=== PATIENT | male | born 1945 | race Caucasian/White ===

== ENCOUNTER 2019-05-12 23:03 | Inpatient (IN) | payer MEDICARE, BC ==
[2019-05-13] MEDS ORDERED: ALPRAZolam 0.25 MG TAB PO PRN (00:01)
[2019-05-13] MEDS ORDERED: MORPHINE SULFATE 4 MG/ML SYRINGE IV PRN (00:01)
[2019-05-13] MEDS ORDERED: KETOROLAC 30 MG/ML 1 ML VIAL IVP PRN (00:01)
[2019-05-13] MEDS ORDERED: IBUPROFEN 400 MG TAB PO PRN (00:01)
[2019-05-13] MEDS ORDERED: NALOXONE 0.4 MG/ML 1 ML VIAL IV PRN (00:01)
--- NOTE | 2019-05-13 00:24 | ED ---
General Adult HPI - General Chief complaint: Urogenital Stated complaint: abnormal labs Time Seen by Provider: 05/12/19 23:27 Source: patient, EMS Mode of arrival: EMS Limitations: no limitations - History of Present Illness Initial comments: Patient is 74-year-old male presenting to emergency Department via transfer from [facility]. Patient was found to have a bladder wall mass in imaging. Patient also reported gross hematuria at the time. At this time patient has no complaints. Patient does report gross hematuria but denies any increased urgency frequency or dysuria. Patient denies any suprapubic or abdominal tenderness. Patient denies any back pain. Patient denies any feveror chills. Patient denies taking medication to alleviate the symptoms. - Related Data Allergies Allergy/AdvReac Type Severity Reaction Status Date / Time No Known Allergies Allergy Verified 05/12/19 23:20 Review of Systems ROS Statement: Those systems with pertinent positive or pertinent negative responses have been documented in the HPI. ROS Other: All systems not noted in ROS Statement are negative. Past Medical History Past Medical History: No Reported History History of Any Multi-Drug Resistant Organisms: None Reported Past Surgical History: No Surgical Hx Reported Past Psychological History: No Psychological Hx Reported Smoking Status: Never smoker Past Alcohol Use History: None Reported Past Drug Use History: None Reported General Exam Limitations: no limitations General appearance: alert, in no apparent distress Head exam: Present: atraumatic, normocephalic, normal inspection Eye exam: Present: normal appearance, PERRL, EOMI Pupils: Present: normal accommodation ENT exam: Present: normal exam, normal oropharynx, mucous membranes moist, TM's normal bilaterally, normal external ear exam Neck exam: Present: normal inspection, full ROM Respiratory exam: Present: normal lung sounds bilaterally Cardiovascular Exam: Present: regular rate, normal rhythm, normal heart sounds GI/Abdominal exam: Present: soft. Absent: tenderness, guarding Extremities exam: Present: normal inspection, full ROM Back exam: Present: normal inspection, full ROM Neurological exam: Present: alert, oriented X3 Psychiatric exam: Present: normal affect, normal mood Skin exam: Present: warm, intact, normal color Course Vital Signs 05/12/19 23:17 Temperature 98.2 F Pulse Rate 87 Respiratory 18 Rate Blood Pressure 126/86 O2 Sat by Pulse 100 Oximetry Medical Decision Making - Medical Decision Making Patient is 74-year-old male resenting to the emergency department via transfer from [facility]. This is an ED to ED transfer. Patient will be admitted for further medical management. Patient does have a bladder mass found on CT imaging. Admitting physician is Dr. Becerril. Urology consulted. Admission orders placed. Patient does not currently have a catheter. Case discussed with Dr. Smith. Disposition Clinical Impression: Bladder mass, Gross hematuria Disposition: HOME SELF-CARE Condition: Stable Instructions (If sedation given, give patient instructions): Urinary Tract Infection in Men (ED) Additional Instructions: Patient will be admitted. Is patient prescribed a controlled substance at d/c from ED?: No Referrals: Ryan Vences MD [Primary Care Provider] - 1-2 days Time of Disposition: 01:01
--- NOTE | 2019-05-13 10:19 | CT ---
EXAMINATION TYPE: CT chest wo con DATE OF EXAM: 05/13/2019 COMPARISON: None HISTORY: 74-year-old male with bladder mass TECHNIQUE: Contiguous axial scanning of the chest without IV contrast. Coronal and sagittal reconstru ctions performed. CT DLP: 353.4 mGycm Automated exposure control for dose reduction was used. FINDINGS: Heart normal size with small localized anterior pericardial fluid measuring 1.2 cm. Coronary vessel c alcifications are present. Ectatic ascending aorta at 3.7 cm and ectatic upper descending thoracic aorta at 3.2 cm. Conventional arch vessel branching anatomy. Enlarged caliber to the main right pulmonary artery of 3.1 cm may reflect underlying pulmonary arteri al hypertension. No thoracic lymphadenopathy by CT size criteria. Evaluation of the lungs shows mild strandy subpleural atelectasis and mild emphysematous change. No c onsolidation or pleural effusion. Small hiatal hernia. Upper abdomen shows a partially visualized hypodense lesion in the left kidney m easuring at least 3.6 cm. Prominent ingested debris within the stomach. Scattered colonic diverticulo sis. Bones: [facility] within the mid to lower thoracic spine. IMPRESSION: 1. STRANDY SUBPLEURAL AREAS OF ATELECTASIS AND MILD EMPHYSEMA. 2. POSSIBLE UNDERLYING PULMONARY ARTERIAL HYPERTENSION. 3. NO ACUTE PULMONARY PROCESS. 4. SMALL HIATAL HERNIA, COLONIC DIVERTICULOSIS, AND A PARTIALLY VISUALIZED HYPODENSE LESION IN THE LE FT KIDNEY MEASURING AT LEAST 3.6 CM WHICH MAY REPRESENT A CYST. RENAL ULTRASOUND SHOULD BE ABLE TO CO NFIRM.
[2019-05-13] MEDS: SODIUM CHLORIDE 0.9% 1,000 ML IV SCH (12:49)
--- NOTE | 2019-05-13 14:06 | P.NPCON ---
History of Present Illness - Reason for Consult acute renal failure - History of Present Illness Reason for consultation: Acute kidney injury History of present illness: Patient is a 74-year-old male seen in renal consultation for acute kidney injury. Unknown as to what his baseline renal function is. Patient went to [facility] yesterday and his creatinine was near 3. He underwent CAT scan of the abdomen and pelvis which revealed left bladder wall mass as well as severe left-sided hydronephrosis and mild right-sided hydronephrosis. No proteinuria was noted on UA. Patient states he noticed gross hematuria about 2 times and he hasn't had any hematuria since. He denies any vomiting or diarrhea. Denies use of nonsteroidals. Denies any family history of renal disease. Oral intake is good. Hemodynamically stable. No history of diabetes. No active complaints at this time. Vital signs are stable. General: The patient appeared well nourished and normally developed. HEENT: Head exam is unremarkable. Neck is without jugular venous distension. LUNGS: Lungs are clear to auscultation and percussion. Breath sounds decreased. HEART: Rate and Rhythm are regular. First and second heart sounds normal. No murmurs, rubs or gallops. ABDOMEN: Abdominal exam reveals normal bowel sounds. Non-tender and non- distended. No evidence of peritonitis. EXTREMITITES: No clubbing, cyanosis, or edema. Past Medical History Past Medical History: Pneumonia Additional Past Medical History / Comment(s): Per transfer papers pt was treated 2 weeks ago for a UTI History of Any Multi-Drug Resistant Organisms: None Reported Past Surgical History: Appendectomy Past Anesthesia/Blood Transfusion Reactions: No Reported Reaction Past Psychological History: No Psychological Hx Reported Smoking Status: Never smoker Past Alcohol Use History: None Reported Past Drug Use History: None Reported Medications and Allergies Home Medications Medication Instructions Recorded Confirmed Type No Known Home Medications 05/13/19 05/13/19 History Allergies Allergy/AdvReac Type Severity Reaction Status Date / Time No Known Allergies Allergy Verified 05/13/19 08:18 Physical Exam Vitals: Vital Signs Temp Pulse Pulse Resp BP BP Pulse Ox 05/13/19 06:45 97.9 F 88 16 107/66 93 L 05/13/19 02:01 98.4 F 79 16 129/73 99 05/13/19 01:53 65 18 123/78 97 05/12/19 23:17 98.2 F 87 18 126/86 100 Intake and Output 05/12/19 05/13/19 05/13/19 22:59 06:59 14:59 Other: Voiding Method Toilet Weight 73.028 kg Assessment and Plan Plan: Assessment: 1. Acute kidney injury secondary to obstructive uropathy. Unknown baseline creatinine. It was 3 yesterday. No proteinuria on UA. 2. Left bladder wall mass. 3. Severe left-sided hydronephrosis and mild right-sided hydronephrosis noted on CAT scan done on May 12. Urology consulted. 4. Gross hematuria which can be due to the bladder wall mass. 5. Metabolic acidosis secondary to acute kidney injury. Bicarb level was 20 as of yesterday. Plan: Start normal saline at 60 mL an hour. Await urology recommendations. Repeat UA. Check renal ultrasound. Repeat electrolytes in the morning. Thank you for the consultation. I will continue to follow the patient with you during his hospital stay.
[2019-05-13 14:45] LABS: Appearance,Urine Cloudy (Clear); Bilirubin,Urine Negative (Negative); Blood,Urine Moderate (Negative); Color,Urine Light Yellow; Glucose,Urine (UA) Negative (Negative); Ketones,Urine Negative (Negative); Leukocyte Esterase,Urine Large (Negative); Nitrite,Urine Negative (Negative); Protein,Urine Trace (Negative); RBC,Urine 42 /hpf (0-5); Specific Gravity,Urine 1.015 (1.001-1.035); Squamous Epithelial Cell,Urine <1 /hpf (0-4); Urobilinogen,Urine <2.0 mg/dL (<2.0); WBC,Urine 72 /hpf (0-5)
--- NOTE | 2019-05-13 15:07 | P.GSCN ---
History of Present Illness Consult date: 05/13/19 Reason for Consult: left hydonephrosis and left bladder mass History of present illness: The patient is a pleasant 74-year-old gentleman. He has mild mental handicap. He does live by himself and [place]. His brother is his power of ip technology transactions attorney. 3 weeks ago he developed gross hematuria. He was seen in the [place] emergency room and given antibiotics. He followed up with a local medical doctor and [place]. He was evaluated and found that of an elevated creatinine. He was sent to the emergency room and a computed tomography scan was performed. It showed bilateral hydronephrosis, severe on the left. There appears to be a bladder mass extending to the extravesical region. There is also a bladder diverticula and some mild hydronephrosis on the right. He other than the hematuria is had no voiding problems. He denies weight loss nausea or vomiting. He has never been a smoker. He has not seen a doctor in years. Review of Systems All systems: negative Past Medical History Past Medical History: Pneumonia Additional Past Medical History / Comment(s): Per transfer papers pt was treated 2 weeks ago for a UTI History of Any Multi-Drug Resistant Organisms: None Reported Past Surgical History: Appendectomy Past Anesthesia/Blood Transfusion Reactions: No Reported Reaction Past Psychological History: No Psychological Hx Reported Smoking Status: Never smoker Past Alcohol Use History: None Reported Past Drug Use History: None Reported Medications and Allergies Home Medications Medication Instructions Recorded Confirmed Type No Known Home Medications 05/13/19 05/13/19 History Allergies Allergy/AdvReac Type Severity Reaction Status Date / Time No Known Allergies Allergy Verified 05/13/19 08:18 Surgical - Exam Vital Signs Temp Pulse Resp BP Pulse Ox 98.2 F 87 18 126/86 100 05/12/19 23:17 05/12/19 23:17 05/12/19 23:17 05/12/19 23:17 05/12/19 23:17 - General well developed, well nourished, no distress - Eyes PERRL - ENT no hearing loss - Neck no masses, no bruits - Respiratory normal expansion, normal respiratory effort - Cardiovascular Rhythm: regular - Abdomen Abdomen: soft, non tender - Genitourinary prostate 20 gm normal penis with no external lesions, testicles present - Integumentary no rash, no growths - Neurologic normal coordination, normal sensation - Musculoskeletal normal gait, normal posture - Psychiatric oriented to time, oriented to person, oriented to place, speech is normal, memory intact Results - Labs Abnormal Lab Results - Last 24 Hours (Table) 05/13/19 Range/Units 14:30 Urine Protein Trace H (Negative) Urine Blood Moderate H (Negative) Ur Leukocyte Esterase Large H (Negative) Urine RBC 42 H (0-5) /hpf Urine WBC 72 H (0-5) /hpf Urine WBC Clumps Few H (None) /hpf - Imaging CT scan - abdomen: report reviewed, image reviewed CT scan - pelvis: report reviewed, image reviewed Assessment and Plan Assessment: Impression: left hydronephrosis, bladder mass Plan:Cysto probable turbt , possible left ureteral stent. This has been discussed with the patient's [id number] and brother. They're the power of ip technology transactions attorney. They understand the potential severity of this problem. They understand he may need a nephrostomy tube if we attempt to be an aggressive down the road.
--- NOTE | 2019-05-13 15:41 | P.CONS ---
History of Present Illness - Reason for Consult Consult date: 05/13/19 bladder mass Requesting physician: Cristian Becerril - Chief Complaint hematuria - History of Present Illness Mister Aragon is a very pleasant 69-year-old male with a rather benign past medical history who presented to [facility] with complaints of hematuria, persistent for a few days, the urine would clear towards the evening. No aggravating or alleviating symptoms reported. No associated symptoms- dysuria, incontinence of urine, urgency or frequency. Patient is a lifetime nonsmoker, he has had about a 15 pound weight loss in the last month or 2, denies fevers, chills, night sweats, no history of diabetes mellitus or renal failure, he denies any pain, difficulty swallowing, shortness of breath, cough, palpitations or chest pains, abdominal pain or cramping, distention, no loss of appetite or early CT despite the weight loss, moderate fatigue that is unusual for him. No personal history of malignancy Review of Systems 14 point ROS is as stated in HPI Past Medical History Past Medical History: Pneumonia Additional Past Medical History / Comment(s): Per transfer papers pt was treated 2 weeks ago for a UTI History of Any Multi-Drug Resistant Organisms: None Reported Past Surgical History: Appendectomy Past Anesthesia/Blood Transfusion Reactions: No Reported Reaction Past Psychological History: No Psychological Hx Reported Smoking Status: Never smoker Past Alcohol Use History: None Reported Past Drug Use History: None Reported Medications and Allergies Home Medications Medication Instructions Recorded Confirmed Type No Known Home Medications 05/13/19 05/13/19 History Allergies Allergy/AdvReac Type Severity Reaction Status Date / Time No Known Allergies Allergy Verified 05/13/19 08:18 Physical Exam Vitals: Vital Signs Temp Pulse Pulse Resp BP BP Pulse Ox 05/13/19 02:01 98.4 F 79 16 129/73 99 05/13/19 01:53 65 18 123/78 97 05/12/19 23:17 98.2 F 87 18 126/86 100 Intake and Output 05/12/19 05/13/19 05/13/19 22:59 06:59 14:59 Other: Voiding Method Toilet Weight 73.028 kg - Constitutional General appearance: average body habitus, cooperative, no acute distress - EENT Eyes: anicteric sclerae, EOMI, normal appearance ENT: hearing grossly normal, normal oropharynx - Neck Neck: no lymphadenopathy - Respiratory Respiratory: bilateral: CTA - Cardiovascular Rhythm: regular Heart sounds: normal: S1, S2 Abnormal Heart Sounds: no systolic murmur, no diastolic murmur, no rub, no S3 Gallop, no S4 Gallop, no click, no other leg Peripheral Edema: bilateral: None - Gastrointestinal General gastrointestinal: no absent bowel sounds, no decreased bowel sounds, no distended, no hepatomegaly, no hyperactive bowel sounds, normal bowel sounds, no organomegaly, no rigid, no scaphoid, soft, no splenomegaly, no tenderness, no umbilical hernia, no ventral hernia - Integumentary Integumentary: normal, normal turgor - Neurologic Neurologic: CNII-XII intact - Musculoskeletal Musculoskeletal: strength equal bilaterally - Psychiatric Psychiatric: A&O x's 3, appropriate affect, intact judgment & insight Results Comments: Reports from [facility] reviewed Requested CT report from [facility] Assessment and Plan (1) Bladder mass Current Visit: Yes Status: Acute Priority: High Code(s): N32.89 - OTHER SPECIFIED DISORDERS OF BLADDER SNOMED Code(s): 010459132 (2) Gross hematuria Current Visit: Yes Status: Acute Priority: High Code(s): R31.0 - GROSS HEMATURIA SNOMED Code(s): 919309187 Plan: High suspicion for malignancy based on presentation and history obtained. CT chest without contrast ordered for staging purpose Urology consulted for evaluation and biopsy of bladder mass. From report there may be blockage of ureter so, ureteral stent may also be necessary. Will await Urology evaluation and recommendations Nephrology consulted for acute renal failure Doctor attests: I performed a history and physical examination of this patient, developed impression and plan of care, discussed with dictator. I agree with dictators note, documented as a scribe.
--- NOTE | 2019-05-13 16:17 | US ---
EXAMINATION TYPE: US kidneys/renal and bladder DATE OF EXAM: 05/13/2019 COMPARISON: CT 05/12/2019 CLINICAL HISTORY: heladio. HELADIO EXAM MEASUREMENTS: Right Kidney: 11.3 x 5.3 x 4.9 cm Left Kidney: 11.1 x 5.6 x 6.0 cm Right Kidney: Moderate hydronephrosis. Left Kidney: Severe hydronephrosis. Dilated ureter. Bladder: Suspect a diverticulum at the right lateral bladder wall. Abnormal thickening present along the left lateral bladder wall is suggestive of bladder carcinoma. No evident renal mass or stone IMPRESSION: Bilateral hydronephrosis as noted on CT, findings suggestive of bladder carcinoma as described.
--- NOTE | 2019-05-13 22:45 | P.HPIM ---
History of Present Illness H&P Date: 05/13/19 Chief Complaint: Bladder mass. Patient was transferred from outside hospital facility. This 74-year-old male without significant past medical history initially presented to [facility] with complaints of blood in the urine. Patient had CT of abdomen pelvis which revealed left bladder wall mass as well as severe left-sided hydronephrosis and mild right-sided hydronephrosis. Patient was also found have elevated creatinine level around 3. Patient was eventually transferred to [facility] for further intervention by urology and oncology. Patient otherwise denied any complaints of fever or chills. No urgency or urinary frequency. No dysuria. Denied any abdominal pain or suprapubic tenderness. No back pain. as of chest pain or shortness breath. No history of prior renal problems previously. Laboratory data and imaging studies from [facility] reviewed. CT chest was ordered. Oncology and urology and nephrology has seen the patient. Review of Systems Constitutional: Patient denies any fever or chills . No generalized weakness or weight loss. Abdomen: Patient denied nausea vomiting and diarrhea and abdominal pain. Cardiovascular: Patient denies any chest pain or short of breath no palpitations. Respiratory: patient denied any cough is from production. No shortness of breath Neurologic: Patient denied any numbness or tingling headache. Musculoskeletal: Patient denies any complaints of joint swelling or deformity. Skin: Negative Psychiatric: Negative Endocrine: No heat or cold intolerance. No recent weight gain. Genitourinary: No dysuria. Patient does have hematuria. All other 14 point ROS negative except the above Past Medical History Past Medical History: Pneumonia Additional Past Medical History / Comment(s): Per transfer papers pt was treated 2 weeks ago for a UTI History of Any Multi-Drug Resistant Organisms: None Reported Past Surgical History: Appendectomy Past Anesthesia/Blood Transfusion Reactions: No Reported Reaction Past Psychological History: No Psychological Hx Reported Smoking Status: Never smoker Past Alcohol Use History: None Reported Past Drug Use History: None Reported Medications and Allergies Home Medications Medication Instructions Recorded Confirmed Type No Known Home Medications 05/13/19 05/13/19 History Allergies Allergy/AdvReac Type Severity Reaction Status Date / Time No Known Allergies Allergy Verified 05/13/19 08:18 Physical Exam Vitals: Vital Signs Temp Pulse Pulse Resp BP BP Pulse Ox 05/13/19 06:45 97.9 F 88 16 107/66 93 L 05/13/19 02:01 98.4 F 79 16 129/73 99 05/13/19 01:53 65 18 123/78 97 05/12/19 23:17 98.2 F 87 18 126/86 100 Intake and Output 05/12/19 05/13/19 05/13/19 22:59 06:59 14:59 Other: Voiding Method Toilet Weight 73.028 kg PHYSICAL EXAMINATION: Patient is lying in the bed comfortably, no acute distress, awake alert and oriented.. HEENT: Normocephalic. Neck is supple. Pupils reactive. Nostrils clear. Oral cavity is moist. Ears reveal no drainage. Neck reveals no JVD, carotid bruits, or thyromegaly. CHEST EXAMINATION: Trachea is central. Symmetrical expansion. Lung soni clear to auscultation and percussion. CARDIAC: Normal S1, S2 with no gallops. No murmurs ABDOMEN: Soft. Bowel sounds normal. No organomegaly. No abdominal bruits. Extremities: reveal no edema. No clubbing or cyanosis Neurologically awake, alert, oriented x3 with well-coordinated movements. No focal deficits noted Skin: No rash or skin lesions. Psychiatric: Coperative. Nonsuicidal Musculoskeletal: No joint swelling or deformity. Normal range of motion. Thrombosis Risk Factor Assmnt - DVT/VTE Prophylaxis DVT/VTE Prophylaxis: Mechanical Prophylaxis ordered - Choose All That Apply Any of the Below Risk Factors Present?: No Each Risk Factor Represents 3 Points: Age 75 years or older Thrombosis Risk Factor Assessment Total Risk Factor Score: 3 Thrombosis Risk Factor Assessment Level: Moderate Risk Assessment and Plan Assessment: Left bladder wall mass Gregory hematuria likely due to left bladder wall mass Acute kidney injury likely due to obstructive uropathy Bilateral hydronephrosis left greater than right DVT prophylaxis SCDs Plan: Patient will be continued on IV hydration and monitor H&H. Urology is planning for cystoscopy and biopsy tomorrow. Nephrology and oncology is on board. CT of the chest was done. Follow CBC and CMP tomorrow. Further recommendations based on the clinical course. Prognosis is guarded at this time. Time with Patient: Greater than 30
[2019-05-14] MEDS: SODIUM CHLORIDE 0.9% 1,000 ML IV SCH ×3 (06:07→13:33)
[2019-05-14 07:21] LABS: Basophils # (A) 0.1 k/uL (0-0.2); Basophils % (A) 1 %; Eosinophils % (A) 0 %; HCT 31.2 % (39.0-53.0); HGB 9.9 gm/dL (13.0-17.5); Lymphocytes # (A) 1.3 k/uL (1.0-4.8); Lymphocytes % (A) 15 %; MCH 27.9 pg (25.0-35.0); MCHC 31.7 g/dL (31.0-37.0); MCV 88.1 fL (80.0-100.0); Mean Platelet Volume 6.2; Monocytes # (A) 0.7 k/uL (0-1.0); Monocytes % (A) 9 %; Neutrophils % (A) 73 %; Platelet Count 344 k/uL (150-450); RBC 3.54 m/uL (4.30-5.90); RDW 14.8 % (11.5-15.5); WBC 8.2 k/uL (3.8-10.6)
[2019-05-14 07:37] LABS: Albumin 3.2 g/dL (3.5-5.0); Calcium 9.1 mg/dL (8.4-10.2); Total Bilirubin 0.7 mg/dL (0.2-1.3); Total Protein 5.9 g/dL (6.3-8.2)
[2019-05-14] MEDS ORDERED: IV FLUID CONTINUATION 1,000 ML IV ONE (11:44)
[2019-05-14] MEDS ORDERED: ONDANSETRON 4 MG/2 ML VIAL IVP ONE (12:08)
[2019-05-14] MEDS ORDERED: DEXAMETHASONE SOD PHOSPHATE 10 MG/ML 1 ML VIAL IV ONE (12:09)
[2019-05-14] MEDS ORDERED: HYDROmorphone (PF) 1 MG/ML ONE (13:10)
[2019-05-14] MEDS ORDERED: MIDAZOLAM 2 MG/2 ML VIAL ONE (13:10)
[2019-05-14] MEDS ORDERED: PROPOFOL 10 MG/ML 20 ML VIAL IV ONE (13:10)
[2019-05-14] MEDS ORDERED: fentaNYL (PF) 50 MCG/ML 2 ML AMP ONE (13:10)
[2019-05-14] MEDS ORDERED: LIDOCAINE 1% INJ 10MG/ML (20 ML MDV) ONE (13:10)
[2019-05-14] MEDS ORDERED: IOPAMIDOL-370 50ML BTL MISCELLANE ONE (14:48)
--- NOTE | 2019-05-14 15:03 | P.OP ---
Date of Procedure: 05/14/19 Preoperative Diagnosis: Bladder mass, large with extravesical extension, left hydronephrosis Postoperative Diagnosis: Bladder cancer with extravesical extension, left hydronephrosis Procedure(s) Performed: Cystoscopy, left ureteroscopy, left double-J catheter placement, TURBT large, incomplete Anesthesia: SANDY Surgeon: George Hawkins Estimated Blood Loss (ml): 100 Pathology: other (Under cancer) Condition: stable Disposition: PACU Indications for Procedure: The patient is 74. He is transferred from [place] because of the elevated creatinine hydronephrosis and a bladder mass seen on computed tomography scan. He had hematuria 3 weeks ago. Most likely has invasive bladder cancer. Come for cystoscopy retrograde pyelogram stent placement if possible, TURBT. Description of Procedure: The patient is brought to the operating suite. He is given a general anesthetic. He's placed lithotomy position with sterile prep and drape. Cystoscopy Foroblique lens and 25-Romanian sheath identifies a normal urethra. The prostate is not obstructing. Upon entering the bladder there is a large pedunculated tumor encompassing the left lateral bladder wall left bladder neck. It is vascular. It is consistent with a high-grade bladder cancer seen on co mputed tomography scan. Computed tomography scan identifies this to be quite extravesical. I thoroughly inspect the trigone and I do believe I can find the ureteral orifice. I attempted to intubate ureteral orifice but cannot do so. Then pass a semirigid ureteroscope up into the ureteral orifice and I'm able to through the ureteral scope passed an 035 wire. I followed up the collecting system. The proximal ureter is very redundant and tortuous. I then pass over the wire a 6-Romanian open-ended catheter and I get a marked hydronephrotic drip confirming my placement in the ureter. Then over the wire pass a 6 x 28 double-J catheter that coils in the redundant ureter as well as in the bladder. Then introduced the resectoscope into the bladder. With the [employer] resectoscope 25-Romanian sheath and Foroblique lens I resect tumor lateral to medial. Tumor is large and I will not be a little totally resected as it significantly extravesical. Resect tumor down the muscle to make sure I get a thorough biopsy to clarify this is indeed at least a T2 probable T3 lesion. I then thoroughly cauterized the tumor base a. It is extremely difficult to do so due to the fact that I'm not been able to completely resect all the tumor as it extends extravesically. Time convinced I have adequate hemostasis I then introduce an 18-Romanian coud-tip catheter in the bladder with clear to very light pink urine return. On examination identifies a pelvic mass. Impression invasive bladder cancer causing hydronephrosis successful double-J catheter placement using ureteroscopy, TURBT for pathologic diagnosis. Tell her procedure well and will be kept in the hospital postoperatively
--- NOTE | 2019-05-14 15:46 | FL ---
Fluoroscopy HISTORY: Bladder resection 13 seconds fluoroscopy time supplied to the referring clinician. 2 intraoperative C-arm images docum ent the procedure. See dictated report from urology.
[2019-05-15] MEDS: ACETAMINOPHEN TAB 325 MG TAB PO PRN (01:26)
[2019-05-15 06:13] LABS: HCT 32.1 % (39.0-53.0); HGB 10.3 gm/dL (13.0-17.5); MCH 28.4 pg (25.0-35.0); MCHC 32.2 g/dL (31.0-37.0); MCV 88.4 fL (80.0-100.0); Mean Platelet Volume 6.4; Platelet Count 346 k/uL (150-450); RBC 3.63 m/uL (4.30-5.90); RDW 14.8 % (11.5-15.5); WBC 11.9 k/uL (3.8-10.6)
[2019-05-15 06:37] LABS: Calcium 8.9 mg/dL (8.4-10.2); Potassium 5.2 mmol/L (3.5-5.1)
--- NOTE | 2019-05-15 06:49 | P.PN ---
Subjective Progress Note Date: 05/15/19 The patient underwent cystoscopy placement of double-J catheter left in TURBT of an invasive large bladder tumor yesterday. His urine is clear. The catheter should remain in one week. 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 Based on the computed tomography scan the lesion is a T3 lesion as it appears to be extravesical. There is no obvious metastasis on the CAT scan. Patient will be a candidate for cystectomy and loop or radiation therapy/chemotherapy. Due to his living and mental status the question is whether the power of workers compensation defense attorney, his brother will want this up. I will be in discussion with them after we get the final biopsy report back. From urologic standpoint he can be discharged to home or extended care facility. Objective - Vital Signs Vital signs: Vital Signs Temp 98.0 F 05/15/19 02:08 Pulse 82 05/15/19 02:08 Resp 16 05/15/19 02:08 BP 133/72 05/15/19 02:08 Pulse Ox 97 05/15/19 02:08 Intake & Output 05/14/19 05/14/19 05/15/19 06:59 18:59 06:59 Intake Total 600 850 180 Output Total 350 720 700 Balance 250 130 -520 Intake: IV 850 Intake, IV Titration 600 180 Amount Sodium Chloride 0.9% 1, 600 180 000 ml @ 60 mls/hr IV . [id number] [facility] Rx#:[id number] Output: Urine 350 720 700 Estimated Blood Loss 0 Other: Voiding Method Urinal Indwelling Catheter Indwelling Catheter # Voids 3 - Labs CBC & Chem 7: 05/15/19 05:42 05/15/19 05:42 Labs: Abnormal Lab Results - Last 24 Hours (Table) 05/14/19 05/14/19 05/15/19 Range/Units 06:24 06:24 05:42 WBC 11.9 H (3.8-10.6) k/uL RBC 3.54 L 3.63 L (4.30-5.90) m/uL Hgb 9.9 L 10.3 L (13.0-17.5) gm/dL Hct 31.2 L 32.1 L (39.0-53.0) % Sodium 136 L (137-145) mmol/L Potassium (3.5-5.1) mmol/L Chloride 109 H (98-107) mmol/L Carbon Dioxide 18 L (22-30) mmol/L BUN 52 H (9-20) mg/dL Creatinine 2.67 H (0.66-1.25) mg/dL ALT 16 L (21-72) U/L Total Protein 5.9 L (6.3-8.2) g/dL Albumin 3.2 L (3.5-5.0) g/dL 05/15/19 Range/Units 05:42 WBC (3.8-10.6) k/uL RBC (4.30-5.90) m/uL Hgb (13.0-17.5) gm/dL Hct (39.0-53.0) % Sodium 136 L (137-145) mmol/L Potassium 5.2 H (3.5-5.1) mmol/L Chloride 108 H (98-107) mmol/L Carbon Dioxide 18 L (22-30) mmol/L BUN 43 H (9-20) mg/dL Creatinine 2.22 H (0.66-1.25) mg/dL ALT (21-72) U/L Total Protein (6.3-8.2) g/dL Albumin (3.5-5.0) g/dL
--- NOTE | 2019-05-15 11:47 | PN ---
PROGRESS NOTE Patient is seen for followup for acute kidney injury. He is status post cystoscopy and placement of double-J catheter for invasive large bladder tumor yesterday. Overall, patient states he is feeling well. His serum creatinine is down to 2.2 from 2.6 yesterday. We do not have previous labs available for comparison. The patient has had good urine output. PHYSICAL EXAMINATION: Blood pressure is 129/78, heart rate 87 per minute. He is afebrile. Examination of the heart S1, S2. Examination of the lungs, bilateral breath sounds are heard. Abdomen is soft, nontender. Examination of the lower extremities shows no significant edema. LABS: Show sodium 136, potassium 5.2, BUN 43, serum creatinine 2.2, hemoglobin 10.3 g/dL. ASSESSMENT: 1. Acute kidney injury, obstructive uropathy with severe left hydronephrosis and mild right hydronephrosis, status post double-J catheter placement yesterday. Patient is being followed by Urology. Serum creatinine is better. 2. Invasive bladder tumor associated with hematuria. 3. Metabolic acidosis secondary to renal failure. I will add oral sodium bicarbonate. PLAN: Add oral bicarb. Maintain good fluid intake. Repeat labs in a.m. IV fluids. MMODL / IJN: [id number] /
--- NOTE | 2019-05-15 14:26 | P.PN ---
Subjective Progress Note Date: 05/14/19 Principal diagnosis: Bladder mass This 74-year-old male without significant past medical history initially presented to [facility] with complaints of blood in the urine. Patient had CT of abdomen pelvis which revealed left bladder wall mass as well as severe left-sided hydronephrosis and mild right-sided hydronephrosis. Patient was also found have elevated creatinine level around 3. Patient was eventually transferred to [facility] for further intervention by urology and oncology. Patient otherwise denied any complaints of fever or chills. No urgency or urinary frequency. No dysuria. Denied any abdominal pain or suprapubic tenderness. No back pain. as of chest pain or shortness breath. No history of prior renal problems previously. Laboratory data and imaging studies from [facility] reviewed. CT chest was ordered. Oncology and urology and nephrology has seen the patient. 05/14/2019 Patient is status post Cystoscopy, left ureteroscopy, left double-J catheter placement, TURBT large, incomplete. Urine continue his to be dark. No fever no chills. No leukocytosis. Hemoglobin 9.9 No commerce of chest pain or shortness of breath. No other acute overnight issues. Current medications reviewed. Objective - Vital Signs Vital signs: Vital Signs Temp 97.7 F 05/14/19 19:14 Pulse 93 05/14/19 19:14 Resp 18 05/14/19 19:14 BP 136/86 05/14/19 19:14 Pulse Ox 99 05/14/19 19:14 Intake & Output 05/14/19 05/14/19 05/15/19 06:59 18:59 06:59 Intake Total 600 850 Output Total 350 720 Balance 250 130 Intake: IV 850 Intake, IV Titration 600 Amount Sodium Chloride 0.9% 1, 600 000 ml @ 60 mls/hr IV . [id number] [facility] Rx#:[id number] Output: Urine 350 720 Estimated Blood Loss 0 Other: Voiding Method Urinal Indwelling Catheter # Voids 3 - Exam PHYSICAL EXAMINATION: Patient is lying in the bed comfortably, no acute distress, awake alert and oriented.. HEENT: Normocephalic. Neck is supple. Pupils reactive. Nostrils clear. Oral cavity is moist. Ears reveal no drainage. Neck reveals no JVD, carotid bruits, or thyromegaly. CHEST EXAMINATION: Trachea is central. Symmetrical expansion. Lung soni clear to auscultation and percussion. CARDIAC: Normal S1, S2 with no gallops. No murmurs ABDOMEN: Soft. Bowel sounds normal. No organomegaly. No abdominal bruits. Extremities: reveal no edema. No clubbing or cyanosis Neurologically awake, alert, oriented x3 with well-coordinated movements. No focal deficits noted Skin: No rash or skin lesions. Psychiatric: Coperative. Nonsuicidal Musculoskeletal: No joint swelling or deformity. Normal range of motion. - Labs CBC & Chem 7: 05/15/19 05:42 05/15/19 05:42 Labs: Abnormal Lab Results - Last 24 Hours (Table) 05/14/19 05/14/19 Range/Units 06:24 06:24 RBC 3.54 L (4.30-5.90) m/uL Hgb 9.9 L (13.0-17.5) gm/dL Hct 31.2 L (39.0-53.0) % Sodium 136 L (137-145) mmol/L Chloride 109 H (98-107) mmol/L Carbon Dioxide 18 L (22-30) mmol/L BUN 52 H (9-20) mg/dL Creatinine 2.67 H (0.66-1.25) mg/dL ALT 16 L (21-72) U/L Total Protein 5.9 L (6.3-8.2) g/dL Albumin 3.2 L (3.5-5.0) g/dL Assessment and Plan Assessment: Left bladder wall mass. Status post cystoscopy and biopsy. [place] hematuria likely due to left bladder wall mass Acute kidney injury likely due to obstructive uropathy Bilateral hydronephrosis left greater than right DVT prophylaxis SCDs Plan: Patient will be continued on IV hydration and monitor H&H. Status post cystoscopy and biopsy with J catheter in place.. Nephrology and oncology is on board. CT of the chest was done. Follow CBC and CMP tomorrow. Further recommendations based on the clinical course. Prognosis is guarded at this time. Time with Patient: Greater than 30
[2019-05-15] MEDS ORDERED: RX INFO: IV CONTRAST WAS GIVEN 1 EACH MISC MISCELLANE PRN (14:50)
--- NOTE | 2019-05-15 15:11 | P.PN ---
Subjective Progress Note Date: 05/15/19 Principal diagnosis: bladder malignancy In follow-up today patient is sitting in a chair, he states he is eating very well, 8 every 20 minutes been brought to the past couple of days, no fevers, difficulty breathing, abdominal pain or cramping, he is having a little bit of burning when he feels like he has to urinate, the Beaver catheter still in place, he denies any bladder spasms or persistent suprapubic pain, he has been ambulating back and forth to the bathroom without difficulty. Objective - Vital Signs Vital signs: Vital Signs Temp 98.7 F 05/15/19 07:00 Pulse 87 05/15/19 08:50 Resp 16 05/15/19 08:50 BP 129/78 05/15/19 07:00 Pulse Ox 98 05/15/19 07:00 Intake & Output 05/14/19 05/15/19 05/15/19 18:59 06:59 18:59 Intake Total 850 180 830 Output Total 720 700 700 Balance 130 -520 130 Intake: IV 850 Intake, IV Titration 180 480 Amount Sodium Chloride 0.9% 1, 180 480 000 ml @ 60 mls/hr IV . [id number] [facility] Rx#:[id number] Oral 350 Output: Urine 720 700 700 Estimated Blood Loss 0 Other: Voiding Method Indwelling Catheter Indwelling Catheter Indwelling Catheter # Voids 3 - Constitutional General appearance: Present: average body habitus, cooperative, no acute distress - EENT Eyes: Present: anicteric sclerae, EOMI ENT: Present: hearing grossly normal - Respiratory Respiratory: bilateral: CTA - Cardiovascular Heart sounds: normal: S1, S2 Abnormal Heart Sounds: Absent: systolic murmur, diastolic murmur, rub, S3 Gallop, S4 Gallop, click, other - Peripheral edema leg Peripheral Edema: bilateral: None - Gastrointestinal General gastrointestinal: Present: normal bowel sounds, soft - Neurologic Neurologic: Present: CNII-XII intact - Musculoskeletal Musculoskeletal: Present: generalized weakness - Psychiatric Psychiatric: Present: A&O x's 3, appropriate affect - Labs CBC & Chem 7: 05/15/19 05:42 05/15/19 05:42 Labs: Abnormal Lab Results - Last 24 Hours (Table) 05/15/19 05/15/19 Range/Units 05:42 05:42 WBC 11.9 H (3.8-10.6) k/uL RBC 3.63 L (4.30-5.90) m/uL Hgb 10.3 L (13.0-17.5) gm/dL Hct 32.1 L (39.0-53.0) % Sodium 136 L (137-145) mmol/L Potassium 5.2 H (3.5-5.1) mmol/L Chloride 108 H (98-107) mmol/L Carbon Dioxide 18 L (22-30) mmol/L BUN 43 H (9-20) mg/dL Creatinine 2.22 H (0.66-1.25) mg/dL Assessment and Plan (1) Bladder mass Narrative/Plan: S/P biopsy and ureteral stent, pathology pending. Discussed with the patient Urology is procedure report. Findings most consistent with malignancy. Patient requested that I speak with his brother. I did get a hold of brother. Reviewed the procedure note as well as likely cancer diagnosis, some possibilities for treatment including jessica-adjuvant chem/XRT, surgery. All questions answered to the best of my ability. Family has requested follow-up with an oncologist closer to [place]. Request sent to the oncology medical staff to follow up on this. Patient will get referred to that area for Medical Oncology follow up. Current Visit: Yes Status: Acute Priority: High Code(s): N32.89 - OTHER SPECIFIED DISORDERS OF BLADDER SNOMED Code(s): 765574106 (2) Gross hematuria Narrative/Plan: Status post biopsy, grossly visible in Beaver catheter bag. Patient is going to follow-up with Urology for the Beaver and ureteral stent. Current Visit: Yes Status: Acute Priority: High Code(s): R31.0 - GROSS HEMATURIA SNOMED Code(s): 910730930 Time with Patient: Greater than 30 (>50% counseling and coordinating care)
[2019-05-15] MEDS: SODIUM CHLORIDE 0.9% 1,000 ML IV SCH (20:59)
[2019-05-15] MEDS: SODIUM BICARBONATE TAB 650 MG TAB PO SCH (21:01)
--- NOTE | 2019-05-15 23:06 | P.PN ---
Subjective Progress Note Date: 05/15/19 Principal diagnosis: Bladder mass This 74-year-old male without significant past medical history initially presented to [facility] with complaints of blood in the urine. Patient had CT of abdomen pelvis which revealed left bladder wall mass as well as severe left-sided hydronephrosis and mild right-sided hydronephrosis. Patient was also found have elevated creatinine level around 3. Patient was eventually transferred to [facility] for further intervention by urology and oncology. Patient otherwise denied any complaints of fever or chills. No urgency or urinary frequency. No dysuria. Denied any abdominal pain or suprapubic tenderness. No back pain. as of chest pain or shortness breath. No history of prior renal problems previously. Laboratory data and imaging studies from [facility] reviewed. CT chest was ordered. Oncology and urology and nephrology has seen the patient. 05/14/2019 Patient is status post Cystoscopy, left ureteroscopy, left double-J catheter placement, TURBT large, incomplete. Urine continue his to be dark. No fever no chills. No leukocytosis. Hemoglobin 9.9 No complaints of chest pain or shortness of breath. No other acute overnight issues. 05 15 2019 Patient is currently lying in the bed comfortably. Awake alert oriented 2-3. Still having blood-tinged urine in the Beaver catheter otherwise abdominal pain is much improved. Patient is status post biopsy and is elevating pathology report. Hemoglobin is fairly stable slightly increased to 10.3 today. Urology and recommended to continue Beaver catheter for a week. Patient most likely has a massive bladder cancer. Patient will need outpatient follow up chemotherapy. Possible discharge to extended care facility Current medications reviewed. Objective - Vital Signs Vital signs: Vital Signs Temp 98.5 F 05/15/19 18:55 Pulse 100 05/15/19 18:55 Resp 18 05/15/19 18:55 BP 121/77 05/15/19 18:55 Pulse Ox 98 05/15/19 18:55 Intake & Output 05/15/19 05/15/19 05/16/19 06:59 18:59 06:59 Intake Total 180 830 Output Total 700 1500 Balance -520 -670 Intake: Intake, IV Titration 180 480 Amount Sodium Chloride 0.9% 1, 180 480 000 ml @ 60 mls/hr IV . [id number] [facility] Rx#:[id number] Oral 350 Output: Urine 700 1500 Other: Voiding Method Indwelling Catheter Indwelling Catheter # Voids 3 # Bowel Movements 1 - Exam PHYSICAL EXAMINATION: Patient is lying in the bed comfortably, no acute distress, awake alert and oriented.. HEENT: Normocephalic. Neck is supple. Pupils reactive. Nostrils clear. Oral cavity is moist. Ears reveal no drainage. Neck reveals no JVD, carotid bruits, or thyromegaly. CHEST EXAMINATION: Trachea is central. Symmetrical expansion. Lung soni clear to auscultation and percussion. CARDIAC: Normal S1, S2 with no gallops. No murmurs ABDOMEN: Soft. Bowel sounds normal. No organomegaly. No abdominal bruits. Extremities: reveal no edema. No clubbing or cyanosis Neurologically awake, alert, oriented x3 with well-coordinated movements. No focal deficits noted Skin: No rash or skin lesions. Psychiatric: Coperative. Nonsuicidal Musculoskeletal: No joint swelling or deformity. Normal range of motion. - Labs CBC & Chem 7: 05/15/19 05:42 05/15/19 05:42 Labs: Abnormal Lab Results - Last 24 Hours (Table) 05/15/19 05/15/19 Range/Units 05:42 05:42 WBC 11.9 H (3.8-10.6) k/uL RBC 3.63 L (4.30-5.90) m/uL Hgb 10.3 L (13.0-17.5) gm/dL Hct 32.1 L (39.0-53.0) % Sodium 136 L (137-145) mmol/L Potassium 5.2 H (3.5-5.1) mmol/L Chloride 108 H (98-107) mmol/L Carbon Dioxide 18 L (22-30) mmol/L BUN 43 H (9-20) mg/dL Creatinine 2.22 H (0.66-1.25) mg/dL Assessment and Plan Assessment: Left bladder wall mass. Possible mural invasive cancer. Status post cystoscopy and biopsy. Elevating pathology report. [place] hematuria likely due to left bladder wall mass. Improved now. Acute kidney injury likely due to obstructive uropathy Bilateral hydronephrosis left greater than right DVT prophylaxis SCDs Plan: Patient will be continued on IV hydration and monitor H&H. Status post cystoscopy and biopsy with J catheter in place.. Nephrology and oncology is on board. CT of the chest was done. Follow CBC and CMP tomorrow. Further recommendations based on the clinical course. Prognosis is guarded at this time. Time with Patient: Greater than 30
[2019-05-16] MEDS: ACETAMINOPHEN TAB 325 MG TAB PO PRN (00:54)
[2019-05-16 07:12] LABS: Basophils % (A) 0 %; Eosinophils % (A) 0 %; HCT 33.2 % (39.0-53.0); HGB 10.8 gm/dL (13.0-17.5); Lymphocytes % (A) 10 %; MCH 28.9 pg (25.0-35.0); MCHC 32.7 g/dL (31.0-37.0); MCV 88.6 fL (80.0-100.0); Mean Platelet Volume 6.7; Monocytes # (A) 0.9 k/uL (0-1.0); Monocytes % (A) 9 %; Neutrophils # (A) 8.1 k/uL (1.3-7.7); Neutrophils % (A) 79 %; Platelet Count 350 k/uL (150-450); RBC 3.75 m/uL (4.30-5.90); RDW 14.9 % (11.5-15.5); WBC 10.2 k/uL (3.8-10.6)
[2019-05-16 07:19] LABS: Calcium 8.9 mg/dL (8.4-10.2); Potassium 4.6 mmol/L (3.5-5.1)
[2019-05-16 08:05] VITALS: BP 114/73; PULSE 94; RESP 16; TEMP 98.4
[2019-05-16] MEDS: SODIUM BICARBONATE TAB 650 MG TAB PO SCH (10:06)
[2019-05-16] MEDS: SODIUM CHLORIDE 0.9% 1,000 ML IV SCH (10:06)
--- NOTE | 2019-05-16 12:17 | P.PN ---
Subjective Progress Note Date: 05/16/19 The patient is recuperating from a transurethral resection of an invasive bladder cancer. The pathology report is still pending. His vital signs are stable. The urine is cloudy as expected. Being transferred to an extended care facility near [place] this afternoon. I'll see him in the office in one week. Objective - Vital Signs Vital signs: Vital Signs Temp 98.4 F 05/16/19 08:04 Pulse 94 05/16/19 08:04 Resp 16 05/16/19 08:04 BP 114/73 05/16/19 08:04 Pulse Ox 97 05/16/19 08:04 Intake & Output 05/15/19 05/16/19 05/16/19 18:59 06:59 18:59 Intake Total 830 600 Output Total 1500 500 Balance -670 600 -500 Intake: Intake, IV Titration 480 600 Amount Sodium Chloride 0.9% 1, 480 600 000 ml @ 60 mls/hr IV . [id number] [facility] Rx#:[id number] Oral 350 Output: Urine 1500 500 Other: Voiding Method Indwelling Catheter Indwelling Catheter Indwelling Catheter # Voids 3 1 # Bowel Movements 1 - Labs CBC & Chem 7: 05/16/19 06:44 05/16/19 06:44 Labs: Abnormal Lab Results - Last 24 Hours (Table) 05/16/19 05/16/19 Range/Units 06:44 06:44 RBC 3.75 L (4.30-5.90) m/uL Hgb 10.8 L (13.0-17.5) gm/dL Hct 33.2 L (39.0-53.0) % Neutrophils # 8.1 H (1.3-7.7) k/uL Chloride 109 H (98-107) mmol/L Carbon Dioxide 19 L (22-30) mmol/L BUN 48 H (9-20) mg/dL Creatinine 2.21 H (0.66-1.25) mg/dL
--- NOTE | 2019-05-16 14:40 | P.DS ---
Providers Date of admission: 05/13/19 00:00 Expected date of discharge: 05/16/19 Attending physician: Cristian Becerril Consults: 05/13/19 00:01 Consult Physician Stat Consulting Provider: Stephane Pickering Consult Reason/Comments: Bladder mass with gross hematuria Do you want consulting provider notified?: Yes 05/13/19 09:12 Consult Physician Routine Consulting Provider: George Hawkins Consult Reason/Comments: bladder wall mass, left ureter blockage Do you want consulting provider notified?: Yes 05/13/19 09:15 Consult Physician Routine Consulting Provider: Zia Hayden Consult Reason/Comments: hydronephrosis, acute renal failure Do you want consulting provider notified?: Yes Primary care physician: Ryan Vences MD Hospital Course: Discharge diagnosis Left bladder wall mass. Possible mural invasive cancer. Status post cystoscopy and biopsy. Awaiting pathology report. [employer] hematuria likely due to left bladder wall mass. Improved now. Hemoglobin is stable currently. Acute kidney injury likely due to obstructive uropathy. Creatinine improving. Bilateral hydronephrosis left greater than right DVT prophylaxis SCDs Hospital course This 74-year-old male without significant past medical history initially presented to [facility] with complaints of blood in the urine. Patient had CT of abdomen pelvis which revealed left bladder wall mass as well as severe left-sided hydronephrosis and mild right-sided hydronephrosis. Patient was also found have elevated creatinine level around 3. Patient was eventually transferred to [facility] for further intervention by urology and oncology. Patient otherwise denied any complaints of fever or chills. No urgency or urinary frequency. No dysuria. Denied any abdominal pain or suprapubic tenderness. No back pain. as of chest pain or shortness breath. No history of prior renal problems previously. Laboratory data and imaging studies from [facility] reviewed. CT chest was ordered. Oncology and urology and nephrology has seen the patient. 05/14/2019 Patient is status post Cystoscopy, left ureteroscopy, left double-J catheter placement, TURBT large, incomplete. Urine continue his to be dark. No fever no chills. No leukocytosis. Hemoglobin 9.9 No complaints of chest pain or shortness of breath. No other acute overnight issues. 05 15 2019 Patient is currently lying in the bed comfortably. Awake alert oriented 2-3. Still having blood-tinged urine in the Beaver catheter otherwise abdominal pain is much improved. Patient is status post biopsy and is elevating pathology report. Hemoglobin is fairly stable slightly increased to 10.3 today. Urology and recommended to continue Beaver catheter for a week. Patient most likely has a massive bladder cancer. Patient will need outpatient follow up chemotherapy. Possible discharge to extended care facility 05/16/2019 Patient is awake alert oriented 2-3. Patient has a guardian otherwise. Hemoglobin is stable. Patient will be continued on Beaver catheter for a total of 7 days and follow with urology and oncology clinic. Creatinine level 2.21 today. Biopsy report is still pending. Patient is being discharged to rehab and follow-up appointments with urology and oncology as well as primary care physician. Denied any abdominal pain. No nausea vomiting or diarrhea. No chest pain or shortness of breath. PHYSICAL EXAMINATION: Patient is lying in the bed comfortably, no acute distress, awake alert and oriented.. HEENT: Normocephalic. Neck is supple. Pupils reactive. Nostrils clear. Oral cavity is moist. Ears reveal no drainage. Neck reveals no JVD, carotid bruits, or thyromegaly. CHEST EXAMINATION: Trachea is central. Symmetrical expansion. Lung soni clear to auscultation and percussion. CARDIAC: Normal S1, S2 with no gallops. No murmurs ABDOMEN: Soft. Bowel sounds normal. No organomegaly. No abdominal bruits. Beaver catheter is in place. Extremities: reveal no edema. No clubbing or cyanosis Neurologically awake, alert, oriented x2-3 with well-coordinated movements. No focal deficits noted Skin: No rash or skin lesions. Psychiatric: Coperative. Nonsuicidal Musculoskeletal: No joint swelling or deformity. Normal range of motion. Vital Signs 05/16/19 08:04 Temperature 98.4 F Pulse Rate [ 94 Pulse Oximetery ] Respiratory 16 Rate Blood Pressure 114/73 [Left Arm] O2 Sat by Pulse 97 Oximetry Total time taken greater than 35 minutes including 18 minutes for counseling and coordination of care. Patient Condition at Discharge: Stable Plan - Discharge Summary Discharge Rx Participant: No New Discharge Prescriptions: New Sodium Bicarbonate Tab 650 mg PO BID 7 Days tab Discharge Medication List Sodium Bicarbonate Tab 650 mg PO BID 7 Days tab 05/16/19 [Rx] Follow up Appointment(s)/Referral(s): [facility], [NON-STAFF] - Ryan Vences MD [Primary Care Provider] - 1-2 days George Hawkins MD [STAFF PHYSICIAN] - 1 Week (Office will call with appt) Patient Instructions/Handouts: Urinary Tract Infection in Men (ED) Activity/Diet/Wound Care/Special Instructions: Patient will be admitted. Patient to make f/u with local oncologist. Discharge Disposition: TRANSFER TO SNF/ECF
--- NOTE | 2019-05-16 22:48 | PN ---
PROGRESS NOTE The patient is seen for followup for acute kidney injury, mainly obstructive uropathy. Renal function has improved slightly with creatinine going down to 2.2 from 2.67. He did not have any previous labs available for comparison. The patient is status post transurethral resection of invasive bladder cancer. On examination, blood pressure was 114/70, heart rate 94 per minute. Patient is afebrile. Examination of the heart S1, S2. Examination of the lungs, bilateral breath sounds are heard. Abdomen is soft, nontender. Examination of lower extremities shows no significant edema. LAB: Show sodium 137, potassium 4.6, chloride 109, BUN 48, serum creatinine 2.21, hemoglobin 10.8 g/dL. ASSESSMENT: 1. Acute kidney injury with severe left hydronephrosis and mild right hydronephrosis, status post double J catheter placement. The patient will be discharged and followup as outpatient with Urology and Nephrology. 2. Invasive bladder tumor with hematuria status post transurethral resection. 3. Metabolic acidosis, started on sodium bicarb. PLAN: Continue with sodium bicarb. Follow up as outpatient in about 1-2 weeks. MMODL / IJN: [id number] /
== END 2019-05-16 15:12 | DRG 654 ==
LOC: EC 23:03 → 4SSUR 05-13
PROVIDERS: ADMIT Hospitalist; ATTEND Hospitalist
PROC: 0TBB8ZZ Excision of Bladder, Via Natural or Artificial Opening Endoscopic (ICD-10-PCS; principal; 2019-05-14 10:15)
PROC: 0T778DZ Dilation of Left Ureter with Intraluminal Device, Via Natural or Artificial Opening Endoscopic (ICD-10-PCS; principal; 2019-05-14 10:15)
PROC: 0T7B8DZ Dilation of Bladder with Intraluminal Device, Via Natural or Artificial Opening Endoscopic (ICD-10-PCS; principal; 2019-05-14 10:15)
DX: C67.2 Malignant neoplasm of lateral wall of bladder (principal); E87.2 Acidosis; N13.30 Unspecified hydronephrosis; N17.9 Acute kidney failure, unspecified; F70 Mild intellectual disabilities; N32.3 Diverticulum of bladder
CPT/HCPCS: 71250; 76770; 80048; 80053; 81001; 85025; 85027; 88307; 99284